=== PATIENT | male | born 1945 | race Two or more races ===

== ENCOUNTER 2018-06-18 07:46 | Outpatient (CLI) | payer OTHER | END 2018-06-18 07:51 | disposition home or self-care (01) | LOC: SONOGRAMA 07:46 | DX: E04.1 Nontoxic single thyroid nodule (principal) ==

== ENCOUNTER 2022-05-20 07:30 | Outpatient (CLI) | payer OTHER | END 2022-05-20 07:33 | disposition home or self-care (01) | LOC: NUCLEAR 07:30 | PROVIDERS: ATTEND Internal Medicine Cardiovascular Disease | DX: I20.9 Angina pectoris, unspecified (principal); R06.02 Shortness of breath | CPT/HCPCS: 78452; 93017; A9500; J1250 ==